=== PATIENT | male | born 1985 | race Caucasian/White ===

== ENCOUNTER 2017-09-16 20:37 | Emergency (ER) | payer OTHER ==
--- NOTE | 2017-09-16 20:45 | UC ---
Complaint Male HPI - HPI Summary HPI Summary: 32 yo male presents with urinary frequency, mild pain with urination, pressure in his perineum, and right flank pain since yesterday. He tells me that he has had prostatitis twice in the past, but isn't sure if this feels quite the same. He has been drinking excessive water trying to "flush" out his system. Has not been sexually active in over 2 months and is not concerned about STDs. No hx of kidney stone. Denies fever, chills, abdominal pain, n/v/d/c, blood in urine, penile tenderness/drainage, or testicular pain. - History of Current Complaint Stated Complaint: FLANK PAIN Time Seen by Provider: 09/16/17 20:45 Hx Obtained From: Patient Onset/Duration: Sudden Onset Timing: Constant Severity Initially: Moderate Severity Currently: Moderate Pain Intensity: 5 Pain Scale Used: 0-10 Numeric - Allergies/Home Medications Allergies/Adverse Reactions: Allergies Allergy/AdvReac Type Severity Reaction Status Date / Time Penicillins Allergy Severe Rash Verified 09/16/17 20:54 Home Medications: Home Medications Fluticasone NASAL SPRAY 50MCG* [Flonase NASAL SPRAY 50MCG*] 1 inh NASAL BID 07/01 [History Confirmed 09/16/17] Gbyelhbc05/Folic AC/Nadh/Coq10 [Xyzbac Tablet] 1 tab PO DAILY 09/16/17 [History Confirmed 09/16/17] Omeprazole CAP* [Prilosec CAP* 20 MG] 20 mg PO DAILY 09/16/17 [History Confirmed 09/16/17] PMH/Surg Hx/FS Hx/Imm Hx - Additional Past Medical History Additional PMH: Prostatitis Allergies GERD Previously Healthy: Yes - Surgical History Surgical History: Yes Surgery Procedure, Year, and Place: Maxiofacial - Family History Known Family History: Positive: None - Social History Occupation: Employed Full-time Lives: With Family Alcohol Use: Occasionally Substance Use Type: None Smoking Status (MU): Never Smoked Tobacco Review of Systems Constitutional: Negative Skin: Negative Respiratory: Negative Cardiovascular: Negative Gastrointestinal: Negative Genitourinary: Dysuria, Frequency, Other - Flank pain Neurovascular: Negative Neurological: Negative Psychological: Negative All Other Systems Reviewed And Are Negative: Yes Physical Exam - Summary Physical Exam Summary: GENERAL: NAD. WDWN. No pain distress. SKIN: No rashes, sores, lesions, or open wounds. NECK: Supple. Nontender. No lymphadenopathy. CHEST: CTAB. No r/r/w. No accessory muscle use. Breathing comfortably and in no distress. CV: RRR. Without m/r/g. Pulses intact. Brisk cap refill. ABDOMEN: Mild right CVA tenderness. Soft. NTTP. No distention or guarding. No organomegaly. Bowel sounds present NEURO: Alert. CN II-XII grossly intact. PSYCH: Age appropriate behavior. Triage Information Reviewed: Yes Vital Signs: Vital Signs: Temp Pulse Resp BP Pulse Ox 98.3 F 56 17 138/90 100 09/16/17 20:39 09/16/17 20:39 09/16/17 20:39 09/16/17 20:39 09/16/17 20:39 Laboratory Tests 09/16/17 20:58 POC Urine Color Yellow POC Urine Clarity Clear POC Urine pH 6.0 POC Ur Specif Issue <= 1.005 L POC Urine Protein Negative POC Ur Glucose (UA) Negative POC Urine Ketones Negative POC Urine Blood Negative POC Urine Nitrite Negative POC Urine Bilirubin Negative POC Urine Urobilinogen 0.2 POC U Leukocyte Esteras Negative Complaint Male Course/Dx - Course Course Of Treatment: He declined genital exam today. His UA was negative for infection. I will send his urine for culture and treat based on his symptoms for UTI vs prostatitis - as he has had this in the past x2. Low suspicion for kidney stone at this time as his flank pain is only mildly TTP and not present at rest, has no sharp/stabbing/tearing pain, and no hematuria. - Differential Dx/Diagnosis Provider Diagnoses: Prostatitis Discharge - Sign-Out/Discharge Documenting (check all that apply): Discharge/Admit/Transfer - Discharge Plan Condition: Stable Disposition: HOME Prescriptions: Ciprofloxacin HCl [Cipro] 500 mg PO BID #14 tablet Patient Education Materials: Prostatitis (ED), Urinary Tract Infection in Men ( ED) Referrals: No Primary Care Phys,NOPCP [Primary Care Provider] - Additional Instructions: If you develop a fever, shortness of breath, chest pain, new or worsening symptoms - please call your PCP or go to the ED. Your blood pressure was mildly elevated at todays visit. Please see your primary provider within 4 weeks for recheck and re-evaluation. - Billing Disposition and Condition Condition: STABLE Disposition: Home
[2017-09-16 20:54] VITALS: BP 138/90
[2017-09-16] MEDS ORDERED: Ciprofloxacin TAB* 500 MG PO ONE (21:15)
== END 2017-09-16 21:30 | disposition home or self-care (01) ==
LOC: UCEAST 20:37
DX: N41.9 Inflammatory disease of prostate, unspecified (principal); K21.9 Gastro-esophageal reflux disease without esophagitis; Z79.899 Other long term (current) drug therapy; Z88.0 Allergy status to penicillin
CPT/HCPCS: 81003; 87086; 99202; A9270-GY; G0463

== ENCOUNTER 2017-09-20 10:03 | Emergency (ER) | payer OTHER ==
[2017-09-20 10:19] VITALS: BP 118/84
--- NOTE | 2017-09-20 15:52 | UC ---
Felipe Chow Natalie, scribed for Fatemeh Gan MD on 09/20/17 at 1149 . Complaint Male HPI - HPI Summary HPI Summary: The patient is a 32 y/o M presenting to [facility] c/o dysuria starting four days ago , and hematuria starting this morning. The pt was at [facility] on 09/16 for dysuria and suprapubic pain, where he was prescribed Ciprofloxacin. The pain has since worsened in his urethra, and he is now having blood in his urine. The pain is currently rated 3/10 in severity. He noted the blood after he had a BM today, which did not have any blood in it. The blood is described as vishal red blood in yellow urine. He urinated normally approximately an hour before this. He additionally c/o lower right-sided back pain. He denies fever, chills, and penile discharge. He reports that he last had unprotected oral sex at the end of May, which is around the time he started having symptoms of "not feeling well." He had STD testing at this time by a doctor in [place] which came out negative. - History of Current Complaint Chief Complaint: UCGU Stated Complaint: BLOOD IN URINE Time Seen by Provider: 09/20/17 10:36 Hx Obtained From: Patient Onset/Duration: Sudden Onset, Lasting Days, Still Present Timing: Lasting Days Severity Initially: Mild Severity Currently: Moderate Pain Intensity: 3 Pain Scale Used: 0-10 Numeric Location: Other - suprapubic and urethra Character: Burning Aggravating Factor(s): Voiding Alleviating Factor(s): Nothing Associated Signs And Symptoms: Positive: Back Pain, Hematuria, Dysuria, Constipation. Negative: Fever, Blood in Stool, Penile Discharge - Allergies/Home Medications Allergies/Adverse Reactions: Allergies Allergy/AdvReac Type Severity Reaction Status Date / Time Penicillins Allergy Severe Rash Verified 09/20/17 11:46 kiwi Allergy Airway Verified 09/20/17 11:46 Obstruction Home Medications: Home Medications Levocetirizine Dihydrochloride [Xyzal] 1 tab PO DAILY 09/20/17 [History Confirmed 09/20/17] PMH/Surg Hx/FS Hx/Imm Hx Previously Healthy: Yes Other Endocrine History: NEGATIVE: diabetes Other Cardiovascular History: negative Other Respiratory History: negative Other GI/ History: NEGATIVE: kidney stones Other Neurological History: negative Other Psychological History: negative - Surgical History Surgical History: Yes Surgery Procedure, Year, and Place: Maxiofacial. shoulder surgery for dislocation - Family History Known Family History: Negative: Cardiac Disease, Hypertension, Diabetes, Renal Disease - Social History Alcohol Use: Occasionally Substance Use Type: Marijuana Substance Use Comment - Amount & Last Used: ocassional Smoking Status (MU): Never Smoked Tobacco Review of Systems Constitutional: Other - NEGATIVE: fevers, chills Skin: Negative Eyes: Negative ENT: Epistaxis Respiratory: Negative Cardiovascular: Negative Gastrointestinal: Abdominal Pain - suprapubic pain, Other - POSITIVE: constipation; NEGATIVE: hematochezia Genitourinary: Dysuria, Hematuria, Vaginal/Penile Pain, Other - NEGATIVE: penile discharge Motor: Negative Neurovascular: Negative Musculoskeletal: Other: - lower right-sided back pain Neurological: Negative Psychological: Negative Is Patient Immunocompromised?: No All Other Systems Reviewed And Are Negative: Yes Physical Exam - Summary Physical Exam Summary: Appearance: Well-Appearing, No Pain Distress, Well-Nourished Eyes: conjunctiva clear, no discharge ENT: Hearing grossly normal, no muffled/hoarse voice. Neck: Normal, Supple Respiratory/Lung Sounds: Lungs clear, Normal breath sounds, No respiratory distress, No accessory muscle use Cardiovascular: RRR, No murmur Abdomen: Mild suprapubic tenderness, Soft, no guarding, not distended There is equivocal right CVA tenderness. No left CVA tenderness Bowel Sounds: Present Exam: normal, no redness, no drainage, no hernia Musculoskeletal: Normal Neurological: Alert, muscle tone normal Psychiatric:Normal, age appropriate behavior Skin: Normal, Warm, Dry, Normal color Triage Information Reviewed: Yes Vital Signs: Initial Vital Signs Temp 97.6 F 09/20/17 10:12 Pulse 44 09/20/17 10:12 Resp 18 09/20/17 10:12 BP 118/84 09/20/17 10:12 Pulse Ox 100 09/20/17 10:12 Vital Signs Reviewed: Yes Complaint Male Course/Dx - Course Course Of Treatment: The patient is a 32 y/o M presenting to [facility] c/o dysuria starting four days ago and hematuria starting this morning after he had a BM. He urinated normally once before noticing vishal red blood in his urine. There was no hematochezia. He additionally c/o urethral and suprapubic pain, constipation, and lower right-sided back pain. He denies fever, chills, and penile discharge. He was at [facility] on 09/16 and was prescribed Ciprofloxacin, which he has been taking, although the pain has been worsening. He had unprotected oral sex in May, which is when his symptoms first began, but he had negative STD results after this. Medications reviewed. Allergies noted. It is noted that the UA done on 09/16/17 at [facility] was negative and patient aware of the results and symptoms getting worse despite . In the [facility] course, the pt's exam is normal. A CT Abd/Pel is necessary to rule out renal stones. Patient is discharged with instructions for kidney stones and UTI, but he is advised to go to [facility] by car for imaging. While in room , I also spoke to his dad( pediatric lpn) and discussed care. I spoke with Dr. Saenz in the ED to notify her of the pt's arrival. Patient is agreeable with this plan. - Differential Dx/Diagnosis Provider Diagnoses: kidney stones, UTI - Physician Notifications Discussed Patient Care With: Shoshana Saenz Time Discussed With Above Provider: 11:05 Instructed by Provider To: MD Will See In ED Discharge - Sign-Out/Discharge Documenting (check all that apply): Discharge/Admit/Transfer - Pt will be discharged to ED. - Discharge Plan Condition: Stable Disposition: TRANS HIGHER LVL OF CARE FAC Patient Education Materials: Kidney Stones (ED), Urinary Tract Infection in Men (ED) Referrals: [facility] [Outside] Additional Instructions: Please go to ER for further testing I have called report to ER Return to Urgent care / ER if symptoms get worse. - Billing Disposition and Condition Condition: STABLE Disposition: Trans Higher Lvl of Care Fac The documentation as recorded by the Felipe chavez Natalie accurately reflects the service I personally performed and the decisions made by me, Fatemeh Gan MD.
== END 2017-09-20 11:18 | disposition short-term general hospital (02) ==
LOC: UCEAST 10:03
DX: N39.0 Urinary tract infection, site not specified (principal); N20.0 Calculus of kidney; Z88.0 Allergy status to penicillin; Z91.018 Allergy to other foods
CPT/HCPCS: 99212; G0463

== ENCOUNTER 2017-09-20 11:38 | Emergency (ER) | payer OTHER ==
[2017-09-20 12:42] LABS: ABS Basophils 0 10^3/ul (0-0.2); ABS Eosinophils 0.1 10^3/ul (0-0.6); ABS Lymphocytes 1.2 10^3/ul (1.0-4.8); ABS Monocytes 0.3 10^3/ul (0-0.8); ABS Neutrophils 2.2 10^3/ul (1.5-7.7); ABS Nucleated RBC 0 10^3/ul; Eosinophil % 3.3 % (0-6); Hematocrit 43 % (42-52); Hemoglobin 14.9 g/dl (14.0-18.0); Lymphocyte % 30.2 % (25-47); Mean Corpuscular HGB Conc 35 g/dl (31-36); Mean Corpuscular Hemoglobin 33 pg (27-31); Mean Corpuscular Volume 94 fL (80-94); Mean Platelet Volume 8.1 um3 (7.4-10.4); Nucleated Red Blood Cells % 0.2; Platelet Count 185 10^3/ul (150-450); Red Blood Count 4.56 10^6/ul (4.00-5.40); Red Cell Distribution Width 13 % (10.5-15); White Blood Count 3.8 10^3/ul (3.5-10.8)
[2017-09-20 12:57] LABS: EGFR Non-African American 82.9 (>60)
[2017-09-20 13:02] LABS: Urine Appearance Clear; Urine Blood 1+ (Negative); Urine Color Colorless; Urine Ketones Negative (Negative); Urine Protein Negative (Negative); Urine Specific Gravity 1.002 (1.010-1.030); Urine Urobilinogen Negative (Negative)
--- NOTE | 2017-09-20 13:18 | RAD ---
INDICATION: Flank pain and hematuria. COMPARISON: There are no prior studies available for comparison. TECHNIQUE: A CT scan of the abdomen and pelvis was performed without intravenous and without oral contrast. Contiguous axial sections were obtained from the lung bases through the symphysis pubis. Images were reconstructed in the coronal and sagittal planes. FINDINGS: The lung bases are clear. No pleural effusion is present. The liver and spleen are within normal limits in size without significant focal abnormality on this noncontrast study. No calcified gallstones are seen. The pancreas appears to be within normal limits in size. The adrenal glands and kidneys are normal in size. No renal calculi or hydronephrosis is seen. No ureteral or bladder calculi are seen. The urinary bladder is distended. The prostate gland is normal in size. The aorta is normal in caliber without significant calcific plaque. No significant enlarged retroperitoneal lymph nodes are seen. The stomach, small and large bowel appear nondistended. The appendix is within normal limits. There is a large amount retained stool present throughout the colon. No free intraperitoneal air or fluid is seen. No significant focal osseous abnormality is seen. IMPRESSION: 1. NO EVIDENCE FOR ACUTE FINDING OR CAUSE FOR THE PATIENT'S ABDOMINAL PAIN IS SEEN. 2. DISTENDED URINARY BLADDER. 3. LARGE AMOUNT RETAINED STOOL.
[2017-09-20] MEDS ORDERED: cefTRIAXone VIAL(*) 250 MG VIAL IM ONE (14:02)
[2017-09-20] MEDS ORDERED: DOXYcycline CAP(*) 100 MG PO ONE (14:02)
[2017-09-20] MEDS ORDERED: Lidocaine 1%* 5 ML VIAL ONE (14:19)
[2017-09-20 14:36] VITALS: BP 117/78
--- NOTE | 2017-09-20 17:18 | ED ---
GI/ HPI - HPI Summary HPI Summary: Pt. is a 32 y.o male who presents to the ER for dysuria, hematuria, flank pain and lower abd. pressure. Pt. was seen at urgent care 09/16/17 for dysuria. Urinalysis and culture obtained at that time. He was placed on Cipro given symptoms even though U/A was negative. Pt. also states he has a history of prostatitis. He states some of his symptoms feel similar to previous episodes. Urine culture from 09/16 showed no growth. Today pt. developed vishal hematuria, back pain and worsening dysuria and presented back to the and was referred to the ER for further evaluation. Pt. otherwise denies N/V, testicular pain or swelling, penile discharge, or concern for STIs. No significant past medical history. Symptoms are moderate in severity. Urination exacerbates symptoms. Rest makes symptoms better. - History of Current Complaint Chief Complaint: EDUrogenitalProblems Time Seen by Provider: 09/20/17 11:51 Stated Complaint: BLOOD IN URINE-SENT F/ CC Hx Obtained From: Patient Pain Intensity: 0 - Allergy/Home Medications Allergies/Adverse Reactions: Allergies Allergy/AdvReac Type Severity Reaction Status Date / Time Penicillins Allergy Severe Rash Verified 09/20/17 11:46 kiwi Allergy Airway Verified 09/20/17 11:46 Obstruction PMH/Surg Hx/FS Hx/Imm Hx Previously Healthy: Yes Endocrine/Hematology History: Denies: Hx Diabetes, Hx Thyroid Disease Cardiovascular History: Denies: Hx Hypertension Respiratory History: Reports: Hx Asthma Denies: Hx Chronic Obstructive Pulmonary Disease (COPD) GI History: Denies: Hx Ulcer - Surgical History Surgery Procedure, Year, and Place: Maxiofacial. shoulder surgery for dislocation Infectious Disease History: No Infectious Disease History: Denies: Hx Hepatitis, Hx Human Immunodeficiency Virus (HIV), Traveled Outside the [place] in Last 30 Days - Family History Known Family History: Positive: None - Social History Occupation: Student Lives: Alone Alcohol Use: Occasionally Substance Use Type: Reports: Marijuana Substance Use Comment - Amount & Last Used: ocassional Smoking Status (MU): Never Smoked Tobacco Review of Systems Constitutional: Negative Negative: Fever, Chills Eyes: Negative ENT: Negative Cardiovascular: Negative Respiratory: Negative Positive: Abdominal Pain. Negative: Vomiting, Diarrhea, Nausea Positive: dysuria, flank pain, hematuria Neurological: Negative All Other Systems Reviewed And Are Negative: Yes Physical Exam Triage Information Reviewed: Yes Vital Signs On Initial Exam: Initial Vitals Temp Pulse Resp BP Pulse Ox 97.7 F 47 15 131/88 100 09/20/17 11:41 09/20/17 11:41 09/20/17 11:41 09/20/17 11:41 09/20/17 11:41 Vital Signs Reviewed: Yes Appearance: Positive: Well-Appearing - Pt. sitting on bed in NAD. Anxious. Skin: Positive: Warm, Dry Head/Face: Positive: Normal Head/Face Inspection Eyes: Positive: Normal Neck: Positive: Supple Abdomen Description: Positive: Other: - Abd. is soft with tenderness over the suprapubic region. Mild right CVA tenderness. Neurological: Positive: Normal, CN Intact II-III Psychiatric: Positive: Affect/Mood Appropriate Diagnostics - Vital Signs Vital Signs Temp Pulse Resp BP Pulse Ox 09/20/17 14:35 97.8 F 43 17 117/78 99 09/20/17 11:41 97.7 F 47 15 131/88 100 - Laboratory Lab Results: Lab Results 09/20/17 09/20/17 09/20/17 Range/Units 12:33 12:33 12:49 WBC 3.8 (3.5-10.8) 10^3/ul RBC 4.56 (4.00-5.40) 10^6/ul Hgb 14.9 (14.0-18.0) g/dl Hct 43 (42-52) % MCV 94 (80-94) fL MCH 33 H (27-31) pg MCHC 35 (31-36) g/dl RDW 13 (10.5-15) % Plt Count 185 (150-450) 10^3/ul MPV 8.1 (7.4-10.4) um3 Neut % (Auto) 57.9 (38-83) % Lymph % (Auto) 30.2 (25-47) % [place] % (Auto) 7.9 H (0-7) % Eos % (Auto) 3.3 (0-6) % Baso % (Auto) 0.7 (0-2) % Absolute Neuts (auto) 2.2 (1.5-7.7) 10^3/ul Absolute Lymphs (auto) 1.2 (1.0-4.8) 10^3/ul Absolute Monos (auto) 0.3 (0-0.8) 10^3/ul Absolute Eos (auto) 0.1 (0-0.6) 10^3/ul Absolute Basos (auto) 0 (0-0.2) 10^3/ul Absolute Nucleated RBC 0 10^3/ul Nucleated RBC % 0.2 Sodium 141 (135-145) mmol/L Potassium 4.8 (3.5-5.0) mmol/L Chloride 105 (101-111) mmol/L Carbon Dioxide 31 (22-32) mmol/L Anion Gap 5 (2-11) mmol/L BUN 10 (6-24) mg/dL Creatinine 1.05 (0.67-1.17) mg/dL Est GFR ( Amer) 100.3 (>60) Est GFR (Non-Af Amer) 82.9 (>60) BUN/Creatinine Ratio 9.5 (8-20) Glucose 101 H (70-100) mg/dL Calcium 9.5 (8.6-10.3) mg/dL Total Bilirubin 0.60 (0.2-1.0) mg/dL AST 16 (13-39) U/L ALT 12 (7-52) U/L Alkaline Phosphatase 36 (34-104) U/L Total Protein 6.6 (6.4-8.9) g/dL Albumin 4.4 (3.2-5.2) g/dL Globulin 2.2 (2-4) g/dL Albumin/Globulin Ratio 2.0 (1-3) Urine Color Colorless Urine Appearance Clear Urine pH 8.0 (5-9) Ur Specific [place] 1.002 L (1.010-1.030) Urine Protein Negative (Negative) Urine Ketones Negative (Negative) Urine Blood 1+ A (Negative) Urine Nitrate Negative (Negative) Urine Bilirubin Negative (Negative) Urine Urobilinogen Negative (Negative) Ur Leukocyte Esterase Negative (Negative) Urine WBC (Auto) Absent (Absent) Urine RBC (Auto) Absent (Absent) Ur Squamous Epith Cells Present A (Absent) Urine Bacteria Absent (Absent) Urine Glucose Negative (Negative) Result Diagrams: 09/20/17 12:33 09/20/17 12:33 Lab Statement: Any lab studies that have been ordered have been reviewed, and results considered in the medical decision making process. GIGU Course/Dx - Course Course Of Treatment: Pt. presenting for worsening dysuria and new onset hematuria and mild flank pain. He is afebrile with stable vital signs. Given ongoing urinary symptoms despite antibiotics and new sxs today, will obtain labs , repeat urine, GC/chlamydia, and CT scan. Labs are unremarkable. U/A shows blood but is negative for infection. Pending GC/chlamydia. CT scan distended urinary bladder, large amount of stool, no other acute findings, reading per radiology. Case discussed with Dr. Putnam. Given pt.'s ongoing urinary symptoms will switch antibx to doxycycline and give dose of rocephin to cover potential STIs. Results discussed with pt. Advised to use over the counter miralax, mag citrate or laxative to alleviate constipation. To increase fluids and fiber in diet. Pt. is currently in the area for school and does not have a PCP. Will have him f.u with the [facility] clinic. To return to ER if sxs change or worsen. Pt. understands and agrees with plan. - Diagnoses Differential Diagnoses - Male: Constipation, Diverticulitis, Appendicitis, Epididymitis, Ureteral Calculi, Urethritis, Urinary Tract Infection Provider Diagnoses: Hematuria, Dysuria Discharge - Sign-Out/Discharge Documenting (check all that apply): Discharge/Admit/Transfer - Discharge Plan Condition: Good Disposition: HOME Prescriptions: DOXYcycline CAP(*) [DOXYcycline 100MG CAP(*)] 100 mg PO BID #20 cap Patient Education Materials: Constipation (ED), Hematuria (ED), Dysuria (ED) Referrals: [facility] [employer] [facility] [Outside] No Primary Care Phys,NOPCP [Primary Care Provider] - Additional Instructions: Call and schedule a follow up appointment with the [facility] Take doxycycline as directed Stop Cipro Increase fluids and fiber in diet For constipation you can take over the counter MiraLAX, magnesium citrate, or laxative Return to ER for increased pain, fever, vomiting or if concerned - Billing Disposition and Condition Condition: GOOD Disposition: Home
== END 2017-09-20 14:35 | disposition home or self-care (01) ==
LOC: ED 11:38
DX: R30.0 Dysuria (principal); R31.9 Hematuria, unspecified; R10.84 Generalized abdominal pain; Z88.0 Allergy status to penicillin
CPT/HCPCS: 36415; 74176; 80053; 81003; 81015; 85025; 87491; 87591; 96372; 99283; A9270-GY; J0696